=== PATIENT | female | born 1995 | race Caucasian/White ===

== ENCOUNTER → 2017-05-23 | Outpatient (REF) | payer BC | LOC: M LAB REF 12:53 | PROVIDERS: ATTEND Physician Assistant | DX: N39.0 Urinary tract infection, site not specified (principal) ==

== ENCOUNTER → 2017-11-10 | Outpatient (CLI) | payer BC | LOC: M WUC 15:50 | DX: T70.29XA Other effects of high altitude, initial encounter (principal) | CPT/HCPCS: 71046 ==

== ENCOUNTER → 2017-11-10 | Outpatient (CLI) | payer BC ==
[~2017-11-10] MED LIST: ISOVUE-370 76% 100ML VIAL (Q9967) As Ordered
== END ==
LOC: M RAD 17:01
DX: T70.29XA Other effects of high altitude, initial encounter (principal)
CPT/HCPCS: Q9967

== ENCOUNTER → 2017-11-11 | Outpatient (CLI) | payer BC | LOC: M WUC 14:39 | DX: T70 Effects of air pressure and water pressure (principal); X58.XXXD Exposure to other specified factors, subsequent encounter; Y92.89 Other specified places as the place of occurrence of the external cause | CPT/HCPCS: 71046 ==

== ENCOUNTER → 2021-06-21 | Outpatient (REF) | payer BC ==
[2021-06-21 22:04] LABS: GC DNA AMPLIFICATION NEGATIVE (NEGATIVE)
== END ==
LOC: M WUC 19:58
PROVIDERS: ATTEND Physician Assistant
DX: N30.01 Acute cystitis with hematuria (principal)

== ENCOUNTER → 2021-11-23 | Outpatient (CLI) | payer BC ==
[~2021-11-23] MED LIST changes: -ISOVUE-370 76% 100ML VIAL (Q9967) As Ordered; +PROHANCE 279.3MG/ML 15ML VIAL As Ordered ONE
== END ==
LOC: M RAD 14:34
PROVIDERS: ATTEND Ophthalmology
DX: H47.10 Unspecified papilledema (principal)
CPT/HCPCS: 70540; 70553; A9576

== ENCOUNTER → 2022-10-07 | Outpatient (REF) | LOC: M EMP 08:10 | PROVIDERS: ATTEND Family Medicine | DX: Z20.822 Contact with and (suspected) exposure to COVID-19 (principal) ==

== ENCOUNTER 2024-03-23 08:10 | Emergency (ER) | payer BC ==
[~2024-03-23] VITALS: Ht 170.2 cm; Wt 52.5 kg
[2024-03-23 09:18] LABS: BASO % 0.8 % (0.0-1.0); EOS % 0.8 % (0.0-3.0); HEMATOCRIT 43.2 % (36.0-47.0); HEMOGLOBIN 14.7 g/dl (12.0-15.5); LYMPH # 1.4 10^3/uL (1.5-5.0); LYMPH % 26.5 % (24.0-44.0); MEAN CORPUSCULAR HEMOGLOBIN 32.9 pg (27.0-33.0); MEAN CORPUSCULAR VOLUME 96.6 fl (80.0-96.0); MONO # 0.4 10^3/uL (0.0-0.8); MONO % 7.7 % (2.0-8.0); NEUTROPHILS # 3.4 10^3/uL (1.5-8.5); PLATELET COUNT, AUTOMATED 238 10^3/uL (150-450); RED BLOOD COUNT 4.47 10^6/uL (4.00-5.40); WHITE BLOOD COUNT 5.3 10^3/uL (4.0-10.0)
[2024-03-23] MEDS ORDERED: ENSK1TAB3 PO (09:18)
[2024-03-23] MEDS ORDERED: VALA1TAB5 PO (09:18)
[2024-03-23] MEDS ORDERED: MULT-40 PO (09:18)
[2024-03-23] MEDS ORDERED: VALA500T5 PO (09:18)
[2024-03-23] MEDS ORDERED: HOME MED LIST COMPLETE! XX SCH (09:20)
[2024-03-23 09:36] LABS: ALBUMIN 3.9 G/DL (3.2-5.2); ALKALINE PHOSPHATASE 50 U/L (46-116); ALT/SGPT 22 U/L (7.0-40); AST/SGOT 38 U/L (<34); BILIRUBIN,DIRECT 0.2 MG/DL (<0.4); BILIRUBIN,TOTAL 0.8 MG/DL (0.3-1.2); BLOOD UREA NITROGEN 7 MG/DL (9-23); CALCIUM LEVEL 9.2 MG/DL (8.5-10.1); CARBON DIOXIDE LEVEL 23 MMOL/L (20-31); CHLORIDE LEVEL 109 MMOL/L (98-107); CREATININE FOR GFR 0.66 MG/DL (0.55-1.30); FREE T4 1.22 NG/DL (0.89-1.76); GLOMERULAR FILTRATION RATE > 60.0 (>60); GLUCOSE, FASTING 79 MG/DL (60-100); POTASSIUM SERUM 4.4 MMOL/L (3.5-5.1); SODIUM LEVEL 138 MMOL/L (136-145)
[2024-03-23 09:37] LABS: HCG, SERUM QUALITATIVE NEGATIVE (NEGATIVE)
[2024-03-23 11:13] VITALS: BP 110/90; TEMP 96.7; O2SAT 99
== END 2024-03-23 11:19 | disposition home or self-care (01) ==
LOC: M ED 08:10
DX: E16.2 Hypoglycemia, unspecified (principal); F17.290 Nicotine dependence, other tobacco product, uncomplicated; Z88.0 Allergy status to penicillin

== ENCOUNTER → 2025-02-26 | Outpatient (REF) | payer BC ==
[~2025-02-26] MED LIST changes: +ENSK1TAB3 PO; +MULT-40 PO; -PROHANCE 279.3MG/ML 15ML VIAL As Ordered ONE; +VALA1TAB5 PO; +VALA500T5 PO
[2025-02-26 14:12] LABS: GC DNA AMPLIFICATION NEGATIVE (NEGATIVE)
[2025-02-26 14:24] LABS: Trichomonas vaginalis (AMP) NOT DETECTED (NEGATIVE)
== END ==
LOC: M LAB REF 11:50
PROVIDERS: ATTEND Nurse Practitioner Family
DX: R30.0 Dysuria (principal); Z11.3 Encounter for screening for infections with a predominantly sexual mode of transmission

== ENCOUNTER → 2025-05-28 | Outpatient (REF) | payer BC ==
[2025-05-28 18:14] LABS: APPEARANCE, URINE HAZY (CLEAR); BACTERIA, URINE AUTO 1+ (NEGATIVE); BILIRUBIN, URINE AUTO NEGATIVE (NEGATIVE); BLOOD, URINE BLOOD 2+ (NEGATIVE); GLUCOSE, URINE (UA) AUTO NEGATIVE (NEGATIVE); KETONE, URINE AUTO TRACE mg/dL (NEGATIVE); LEUKOCYTE ESTERASE, URINE AUTO 3+ (NEGATIVE); NITRITE, URINE AUTO NEGATIVE (NEGATIVE); PROTEIN, URINE AUTO NEGATIVE (NEGATIVE); RBC, URINE AUTO 4 /HPF (0-3); SPECIFIC GRAVITY URINE AUTO 1.005 (1.002-1.035); SQUAMOUS EPITHELIAL CELL UR AU 4 /HPF (0-6); UROBILINOGEN, URINE AUTO 0.2 mg/dL (0.0-2.0); WBC, URINE AUTO 83 /HPF (0-3)
== END ==
LOC: M LAB REF 17:02
PROVIDERS: ATTEND Physician Assistant
DX: N39.0 Urinary tract infection, site not specified (principal)